=== PATIENT | male | born 1970 | race Caucasian/White ===

== ENCOUNTER 2021-05-10 23:47 | Emergency (ER) | payer MEDICAID ==
[~2021-05-10] VITALS: Ht 180.3 cm; Wt 87.3 kg
[~2021-05-10 23:47] MED LIST: ALBU0.0939 IH; [UNRECOGNIZED DRUG - CODE] IH
[2021-05-11 00:04] VITALS: BP 187/111
--- NOTE | 2021-05-11 00:04 | NUR ---
TO BED AMBULATORY
--- NOTE | 2021-05-11 00:19 | NUR ---
Dr. Cobb examining patient.
[2021-05-11] MEDS ORDERED: IBUPROFEN 600 MG TAB PO ONE (00:20)
[2021-05-11] MEDS ORDERED: NAPR-54 PO (00:21)
[2021-05-11] MEDS ORDERED: AMOX-1000 PO (00:21)
--- NOTE | 2021-05-11 00:26 | NUR ---
Patient discharged with v/s stable. Written and verbal after care instructions given and explained. Patient alert, oriented and verbalized understanding of instructions. Ambulatory with steady gait. All questions addressed prior to discharge. ID band removed. Patient advised to follow up with PMD. Rx of augmentin 875-125 tablet, and naprosyn given. Patient educated on indication of medication including possible reaction and side effects. Opportunity to ask questions provided and answered.
[2021-05-11 00:27] VITALS: BP 187/111
== END 2021-05-11 00:26 | disposition home or self-care (01) ==
LOC: MED 23:47
DX: H66.001 Acute suppurative otitis media without spontaneous rupture of ear drum, right ear (principal); E11.9 Type 2 diabetes mellitus without complications; I10 Essential (primary) hypertension; J43.9 Emphysema, unspecified; Z79.899 Other long term (current) drug therapy
CPT/HCPCS: 99283